=== PATIENT | male | born 1995 | race Caucasian/White ===

== ENCOUNTER 2018-08-06 13:59 | Outpatient (CLI) | payer BC ==
[2018-08-06 15:05] LABS: #Eosinphils 0.8 thou/uL (0.0-0.7); #Lymphocytes 3.3 thou/uL (1.20-3.40); #Monocytes 0.6 thou/uL (0.11-0.59); %Basophils 0.5 % (0.0-1.0); %Eosinophils 8.8 % (0.0-10.0); %Lymphocytes 38.2 % (21.0-51.0); %Monocytes 6.5 % (0.0-10.0); Hemoglobin 15.3 g/dL (14.0-18.0); Mean Corpuscular HGB CONC 32.7 g/dL (32.0-36.0); Mean Corpuscular Hemoglobin 26.2 pg (27.0-31.0); Mean Platelet Volume 7.3 fL (7.4-10.4); Platelet Count 294 thou/uL (130-400); RBC Distribution Width 12.2 % (11.5-14.5); Red Blood Cell (RBC) Count 5.86 mill/uL (4.70-6.10); White Blood Cell (WBC) Count 8.6 thou/uL (4.8-10.8)
[2018-08-06 15:25] LABS: Anion Gap 10 mmol/L (10-20); BUN (Urea Nitrogen) 20 mg/dL (8.9-20.6); Calc. Creatinine Clearance 0 mL/min (70-130); Calcium 10.1 mg/dL (7.8-10.44); Carbon Dioxide 29 mmol/L (22-29); Chloride 104 mmol/L (98-107); Estimated GFR-MDRD Greater than 90; Glucose 81 mg/dL (70-105); Potassium 3.9 mmol/L (3.5-5.1); Sodium 139 mmol/L (136-145)
== END 2018-08-06 14:00 | disposition home or self-care (01) ==
LOC: LABBT 13:59
PROVIDERS: ATTEND Specialist
DX: Z01.812 Encounter for preprocedural laboratory examination (principal); A63.0 Anogenital (venereal) warts
CPT/HCPCS: 80048; 85025

== ENCOUNTER 2018-08-12 05:49 | Day surgery (SDC) | payer BC ==
[2018-08-06 14:21] VITALS: BMI 34.0
[2018-08-12] MEDS ORDERED: Ketorolac Tromethamine 30 MG/ML VIAL ONE (06:33)
[2018-08-12] MEDS ORDERED: Lidocaine 2% Jelly 5 ML TUBE ONE (07:02)
[2018-08-12] MEDS ORDERED: Bupivacaine/Epinephrine 0.25% 30 ML VIAL ONE (07:02)
[2018-08-12] MEDS ORDERED: Midazolam HCl 2 mg/2 ml Vial ONE (07:09)
[2018-08-12] MEDS ORDERED: Fentanyl 100 MCG/2 ML VIAL ONE (07:11)
[2018-08-12] MEDS ORDERED: HYDROmorphone 2 MG/ML VIAL ONE (07:12)
[2018-08-12] MEDS ORDERED: PROPOFOL 200 MG/20 ML VIAL ONE (15:25)
[2018-08-12] MEDS ORDERED: Ondansetron PF 4 MG/2 ML Vial ONE (15:25)
[2018-08-12] MEDS ORDERED: Lidocaine 1% PF 5 ML VIAL ONE (15:25)
[2018-08-12] MEDS ORDERED: Dexamethasone 20 MG/5 ML VIAL ONE (15:25)
--- NOTE | 2018-08-13 14:02 | OP ---
DATE OF PROCEDURE: 08/12/2018 PREOPERATIVE DIAGNOSIS: Perianal condyloma. POSTOPERATIVE DIAGNOSIS: Perianal condyloma. PROCEDURE PERFORMED: Excision of perianal condyloma with fulguration. ANESTHESIA: General endotracheal. INDICATIONS: The patient is a 23-year-old white male. He presented with visible and palpable perianal lesions as well at least one that was within the anal canal. He is taken to the operating room at this time for excision of obvious perianal condyloma. DESCRIPTION OF PROCEDURE: Informed consent was obtained. The patient was taken to the operating room, where general anesthesia was obtained with the patient in the supine position. He was then placed into dorsal lithotomy using candy-cane stirrups. Perianal area was trimmed of hair, prepped with Betadine, and draped in sterile fashion. Local anesthetic was infiltrated using 0.25% Marcaine with epinephrine in a 4-quadrant intersphincteric fashion. Each of the visible and palpable lesions in the perianal and the area in the anal canal was identified, locally anesthetized, and excised with cauterization of the base. The [employer] smoke aspirator was used to minimize smoke within the wound. Hemostasis was intact. A dry gauze dressing was placed externally along with mesh pants. It was estimated that seven of these lesions were removed, most of which were small lesions of only 1 to 3 mm. Job ID: [id number]
== END 2018-08-12 10:32 | disposition home or self-care (01) ==
LOC: SDC 05:49
PROVIDERS: ATTEND Specialist
PROC: 0H58XZZ Destruction of Buttock Skin, External Approach (ICD-10-PCS; principal; 2018-08-12)
DX: A63.0 Anogenital (venereal) warts (principal)
CPT/HCPCS: J0131; J0690; J1100; J1170; J1885; J2001; J2250; J2405; J2704; J3010